=== PATIENT | male | born 1955 | race Asian ===

== ENCOUNTER 2018-08-28 06:37 | Day surgery (SDC) | payer MEDICAID ==
[~2018-08-28] VITALS: Ht 177.8 cm; Wt 81.6 kg
[~2018-08-28 06:37] MED LIST: APIX2.5T PO; ATOR1TAB PO; CARV6.25 PO; CLOP75TA28 PO; FURO40TA PO; GABA400C11 PO; HYDR-531 PO; NITR0.4S29 SL; RANI-226 PO; SPIR25TA8 PO
[2018-08-28] MEDS ORDERED: MIDAZOLAM HCL 1MG/1ML-2 ML VIAL ONE ×2 (08:13→08:24)
[2018-08-28] MEDS ORDERED: fentaNYL CITRATE 100 MCG/2 ML VL ONE (08:13)
[2018-08-28] MEDS ORDERED: ANGIOMAX 250 MG VIAL IV ONE (08:13)
[2018-08-28] MEDS ORDERED: SODIUM CHL 0.9% 0 ML ONE (08:13)
[2018-08-28] MEDS ORDERED: VERAPAMIL 2.5MG/ML INJ 2ML VIAL IV ONE (08:13)
[2018-08-28] MEDS ORDERED: HEPARIN SODIUM (PORCINE) 5000 UNITS/ML 1ML VIAL ONE (08:31)
[2018-08-28] MEDS ORDERED: LIDOCAINE 2%HCL (LOCAL ANESTH.) INJ 20ML MDV ONE (08:49)
[2018-08-28] MEDS ORDERED: IODIXANOL 320MG/ML 100ML BTL IV ONE (08:49)
[2018-08-28] MEDS ORDERED: HYDROcodone-ACET 5/325MG TAB PO PRN (09:15)
[2018-08-28] MEDS ORDERED: ONDANSETRON HCL 4 MG/2 ML VIAL IV PRN (09:15)
[2018-08-28] MEDS ORDERED: ACETAMINOPHEN 500 MG TAB PO PRN (09:15)
== END 2018-08-28 10:53 | disposition home or self-care (01) ==
LOC: CATH 06:37
PROVIDERS: ATTEND Internal Medicine
DX: I25.118 Atherosclerotic heart disease of native coronary artery with other forms of angina pectoris (principal); Z88.1 Allergy status to other antibiotic agents; I42.8 Other cardiomyopathies; J44.9 Chronic obstructive pulmonary disease, unspecified; I10 Essential (primary) hypertension; F17.200 Nicotine dependence, unspecified, uncomplicated; Z79.899 Other long term (current) drug therapy
CPT/HCPCS: 93458; A6257; C1769; C1894; J1644; J2250; J3010; J7030; Q9967; 99152

== ENCOUNTER 2024-09-29 11:46 | Day surgery (SDC) | payer OTHER, MEDICAID ==
[~2024-09-29] VITALS: Ht 175.3 cm; Wt 82.6 kg
[~2024-09-29 11:46] MED LIST changes: +ACET-1881 PO; +ATOR-47 PO; -ATOR1TAB PO; +BECL80AE11 IN; +BUME2TAB5 PO; -CARV6.25 PO; +CARV6.2517 PO; +CHOL50007 PO; +DOCU-94 PO; +FERR-7 PO; -FURO40TA PO; +GABA-339 PO; -GABA400C11 PO; +IODIXANOL 320MG/ML 100ML BTL IV ONE; +IPRAAER6 IN; +MULT-732 PO; -RANI-226 PO; -SPIR25TA8 PO; +THEO300T36 PO; +[UNRECOGNIZED DRUG - CODE] PO
[2024-09-29] MEDS ORDERED: IODIXANOL 320MG/ML 100ML BTL IV ONE ×2 (12:56→14:18)
[2024-09-29] MEDS ORDERED: ANGIOMAX 250 MG VIAL IV ONE (13:01)
[2024-09-29] MEDS ORDERED: MIDAZOLAM HCL 2MG/2ML 2ml VIAL (1mg/ml) ONE (13:02)
[2024-09-29] MEDS ORDERED: SODIUM CHL 0.9% 0 ML ONE (13:02)
[2024-09-29] MEDS ORDERED: LIDOCAINE 2%HCL (LOCAL ANESTH.) INJ 20ML MDV ONE (13:02)
[2024-09-29] MEDS ORDERED: fentaNYL CITRATE 100 MCG/2 ML VL ONE (13:02)
[2024-09-29] MEDS ORDERED: HEPARIN SODIUM (PORCINE) 5000 UNITS/ML 1ML VIAL ONE (14:20)
--- NOTE | 2024-09-29 14:49 | DVHOP ---
DATE OF SURGERY: 09/29/2024 PREOPERATIVE DIAGNOSIS: Peripheral artery disease with ischemic rest pain. POSTOPERATIVE DIAGNOSIS: Mild peripheral artery disease. PROCEDURES PERFORMED: Ultrasound-guided vascular access. First, second, third order catheter placement catheterization, unilateral lower extremity angiogram, abdominal angiogram with lower extremity runoff, conscious sedation administration and supervision less than 15 minutes as well as 15-30 minutes, fluoroscopy use interpretation. DESCRIPTION OF PROCEDURE: The patient signed informed consent, understanding risks, benefits, and alternatives of the procedure, he wished to proceed. He was brought to the laboratory scientist [place] state. He was prepped in sterile fashion. The patient was prepped in the left groin as well as a right ankle. I gave 1 mL of 2% lidocaine to the right anterior tibial location. At this point, with ultrasound-guided access, I cannulated the right anterior tibial artery with ease and placed a 6-[place] Glidesheath Slender. An intra-arterial spasmolytic was administered. Next, I took a lower extremity angiogram as described above. I used a Quick-Cross 0.035 along with a Glidewire to complete the procedure. At the completion of procedure, all guides and wires were removed and manual hold was obtained. There were no complications. The patient was given 3000 units of IV heparin. FINDINGS: Right anterior tibial artery is patent. Right posterior tibial artery is patent. Right peroneal artery is patent. Right popliteal artery is patent. Right common iliac artery is patent. Distal abdominal aorta is patent. Right external iliac artery has mild 30% stenosis. Right common femoral artery is patent. Right proximal, mid and distal SFA is patent. Left common iliac artery has a 50% stenosis in the proximal to mid portion. CONCLUSION: No hemodynamically significant PAD noted on the right lower extremity with three-vessel runoff. PLAN: Continue aggressive risk factor modification for the patient. Yvan Mcintyre MD CM/ZAKIYA TID: [id number] RECEIPT: [id number]
[2024-09-29] MEDS: OXYCODONE W/ ACETAMINOPHEN 5/325MG TABLET PO ONE (16:45)
== END 2024-09-29 17:10 | disposition home or self-care (01) ==
LOC: CATH 11:46
PROVIDERS: ATTEND Internal Medicine
DX: I70.221 Atherosclerosis of native arteries of extremities with rest pain, right leg (principal); Z79.899 Other long term (current) drug therapy; Z88.1 Allergy status to other antibiotic agents; Z88.2 Allergy status to sulfonamides
CPT/HCPCS: 36247; 75710; C1887; C1894; J1644; J2250; J3010; J7030; Q9967; 99152; 99153